=== PATIENT | male | born 1960 | race Caucasian/White ===

== ENCOUNTER 2017-06-09 18:07 | Inpatient (IN) | payer OTHER ==
[~2017-06-09] VITALS: Ht 167.6 cm; Wt 90.0 kg
[2017-06-09] MEDS ORDERED: ATEN50TA41 PO (18:25)
[2017-06-09] MEDS ORDERED: INSU100V12 SQ (18:25)
[2017-06-09] MEDS ORDERED: METF10002 PO (18:25)
[2017-06-09] MEDS ORDERED: AMLO5TAB4 PO (18:25)
[2017-06-09] MEDS ORDERED: LISI-170 PO (18:25)
[2017-06-09 18:54] LABS: HEMATOCRIT 38.4 % (39.2-51.8); HEMOGLOBIN 12.9 g/dL (13.7-18.0); WHITE BLOOD COUNT 6.6 x10^3/uL (3.4-10)
[2017-06-09 19:08] LABS: ASPARTATE AMINO TRANSFERASE 33 U/L (15-37); BLOOD UREA NITROGEN 26 mg/dL (7-18)
[2017-06-09 19:14] LABS: IS PT STATUS REG ER OR PRE ER? YES
[2017-06-09] MEDS ORDERED: morphine SULFATE 10 MG/ML, 1ML IVPush PRN (19:30)
[2017-06-09] MEDS ORDERED: TEMAZEPAM 15 MG CAPSULE PO PRN (19:30)
[2017-06-09] MEDS ORDERED: METOPROLOL TARTRATE 25 MG TABLET PO SCH (19:30)
[2017-06-09] MEDS ORDERED: ONDANSETRON 2MG/ML, 2ML IVPush PRN ×2 (19:30)
[2017-06-09 20:50] VITALS: BP 154/107
[2017-06-09] MEDS: ENOXAPARIN 80 MG/0.8 ML SQ SCH (22:38)
[2017-06-09] MEDS: ATENOLOL 50 MG TABLET PO SCH (22:38)
[2017-06-09] MEDS: INSULIN ASPART 100 UNITS/ML, PEN SQ-INSULIN SCH (22:39)
[2017-06-10 01:24] LABS: HEMATOCRIT 34.8 % (39.2-51.8); HEMOGLOBIN 11.6 g/dL (13.7-18.0); WHITE BLOOD COUNT 6.7 x10^3/uL (3.4-10)
[2017-06-10 01:37] LABS: BLOOD UREA NITROGEN 25 mg/dL (7-18)
[2017-06-10 01:40] LABS: IS PT STATUS REG ER OR PRE ER? NO
[2017-06-10 03:42] VITALS: BP 153/82
[2017-06-10] MEDS: ASPIRIN 325 MG TABLET EC PO SCH (06:37)
[2017-06-10 07:56] VITALS: BP 186/114
[2017-06-10] MEDS: INSULIN ASPART 100 UNITS/ML, PEN SQ-INSULIN SCH ×4 (08:11→21:23)
[2017-06-10] MEDS: LISINOPRIL 20 MG TABLET PO SCH (08:12)
[2017-06-10] MEDS: ATENOLOL 50 MG TABLET PO SCH ×2 (08:12→21:21)
[2017-06-10 10:28] VITALS: BP 157/84
[2017-06-10] MEDS: ENOXAPARIN 80 MG/0.8 ML SQ SCH ×2 (10:29→21:22)
[2017-06-10 14:03] VITALS: BP 166/96
[2017-06-10 14:55] LABS: IS PT STATUS REG ER OR PRE ER? NO
[2017-06-10 18:38] VITALS: BP 153/92
[2017-06-10] MEDS: ATORVASTATIN 40 MG TABLET PO SCH (21:21)
[2017-06-10] MEDS: SODIUM CHLORIDE FLUSH 10ML SYR IVF SCH (21:25)
[2017-06-11] VITALS (7 sets, daily range): BP systolic 149–183; BP diastolic 88–110
[2017-06-11] MEDS: ACETAMINOPHEN 325 MG TABLET PO PRN ×2 (03:14→21:42)
[2017-06-11] MEDS: ASPIRIN 325 MG TABLET EC PO SCH (06:07)
[2017-06-11] MEDS: SODIUM CHLORIDE FLUSH 10ML SYR IVF SCH ×2 (07:58→21:20)
[2017-06-11] MEDS: ATENOLOL 50 MG TABLET PO SCH ×2 (07:59→21:20)
[2017-06-11] MEDS: LISINOPRIL 20 MG TABLET PO SCH ×3 (07:59→21:20)
[2017-06-11] MEDS ORDERED: FUROSEMIDE 20 MG/2 ML IV ONE (08:30)
[2017-06-11] MEDS: INSULIN ASPART 100 UNITS/ML, PEN SQ-INSULIN SCH ×4 (08:38→21:23)
[2017-06-11] MEDS: ENOXAPARIN 80 MG/0.8 ML SQ SCH ×2 (08:39→21:22)
[2017-06-11] MEDS ORDERED: REGADENOSON 0.4 MG/5 ML SYRINGE ONE (08:47)
[2017-06-11] MEDS: AMLODIPINE 5 MG TABLET PO SCH (10:42)
[2017-06-11] MEDS: FUROSEMIDE 20 MG/2 ML IV SCH (17:45)
[2017-06-11] MEDS ORDERED: ENALAPRILAT 1.25 MG/ML, 2ML IV PRN (18:00)
[2017-06-11] MEDS: ATORVASTATIN 40 MG TABLET PO SCH (21:20)
[2017-06-12 02:21] VITALS: BP 164/93
[2017-06-12 05:39] LABS: BLOOD UREA NITROGEN 20 mg/dL (7-18)
[2017-06-12] MEDS: ASPIRIN 325 MG TABLET EC PO SCH (06:13)
[2017-06-12 07:12] VITALS: BP_SYST 178; BP_SYST 185; BP_DIAS 100; BP_DIAS 91
[2017-06-12] MEDS: AMLODIPINE 5 MG TABLET PO SCH (07:56)
[2017-06-12] MEDS: FUROSEMIDE 20 MG/2 ML IV SCH ×2 (07:56→17:21)
[2017-06-12] MEDS: ATENOLOL 50 MG TABLET PO SCH (07:56)
[2017-06-12] MEDS: INSULIN ASPART 100 UNITS/ML, PEN SQ-INSULIN SCH ×3 (07:57→17:21)
[2017-06-12] MEDS: LISINOPRIL 20 MG TABLET PO SCH (07:57)
[2017-06-12] MEDS: SODIUM CHLORIDE FLUSH 10ML SYR IVF SCH (08:01)
[2017-06-12] MEDS ORDERED: APIXABAN 5 MG TABLET PO SCH (09:00)
[2017-06-12] MEDS ORDERED: AMLODIPINE 5 MG TABLET PO SCH (09:00)
[2017-06-12] MEDS ORDERED: METOPROLOL SUCCINATE 50 MG TAB.ER.24H PO SCH (09:00)
[2017-06-12] MEDS ORDERED: OMNIPAQUE 350 MG/ML, 100ML BOTTLE ONE (12:20)
[2017-06-12] MEDS ORDERED: APIX5TAB PO (13:15)
[2017-06-12] MEDS ORDERED: INSU100V12 SQ (13:15)
[2017-06-12] MEDS ORDERED: LISI-170 PO (13:15)
[2017-06-12] MEDS ORDERED: ATOR40TA78 PO (13:15)
[2017-06-12] MEDS ORDERED: METO-93 PO (13:15)
[2017-06-12] MEDS ORDERED: AMLO5TAB2 PO (13:15)
[2017-06-12] MEDS ORDERED: FURO-93 PO (13:20)
[2017-06-12 13:25] VITALS: BP 159/83
== END 2017-06-12 22:06 | disposition home or self-care (01) | DRG 280 ==
LOC: ED 19:20 → 5SO 19:21 → SUATTDRO 19:28 → ED 20:06
PROVIDERS: ADMIT Internal Medicine; ATTEND Internal Medicine
DX: I48.91 Unspecified atrial fibrillation (principal); I21.4 Non-ST elevation (NSTEMI) myocardial infarction; I50.31 Acute diastolic (congestive) heart failure; I11.0 Hypertensive heart disease with heart failure; E11.9 Type 2 diabetes mellitus without complications; E11.65 Type 2 diabetes mellitus with hyperglycemia
CPT/HCPCS: 36415; 71010; 71275; 78452; 78582; 80048; 80053; 80061; 82962; 83036; 83735; 83880; 84439; 84443; 84484; 85025; 85379; 93005; 93017; 93306; 99285; J1650; J1815; J2785; Q9967; A9502; A9540; A9558; C9898; J1940